=== PATIENT | male | born 2000 | race African-American/Black ===

== ENCOUNTER 2022-01-06 15:08 | Emergency (ER) | payer OTHER ==
[~2022-01-06] VITALS: Ht 175.3 cm; Wt 75.0 kg
[2022-01-06 16:11] LABS: BASO # 0.1 10^3/uL (0.0-0.2); BASO % 0.7 % (0.0-1.0); EOS # 0.2 10^3/uL (0.0-0.5); EOS % 2.7 % (0.0-3.0); HEMATOCRIT 44.3 % (42.0-52.0); HEMOGLOBIN 14.8 g/dl (13.5-17.5); LYMPH # 2.3 10^3/uL (1.5-5.0); LYMPH % 32.4 % (24.0-44.0); MEAN CORPUSCULAR HEMOGLOBIN 29.8 pg (27.0-33.0); MEAN CORPUSCULAR HGB CONC 33.4 g/dl (32.0-36.5); MEAN CORPUSCULAR VOLUME 89.3 fl (80.0-96.0); MONO # 0.9 10^3/uL (0.0-0.8); NEUTROPHILS # 3.7 10^3/uL (1.5-8.5); NEUTROPHILS % 51.9 % (36.0-66.0); PLATELET COUNT, AUTOMATED 298 10^3/uL (150-450); RED BLOOD COUNT 4.96 10^6/uL (4.30-6.10); WHITE BLOOD COUNT 7.1 10^3/uL (4.0-10.0)
[2022-01-06 16:36] LABS: BLOOD UREA NITROGEN 13 MG/DL (7-18); CALCIUM LEVEL 9.5 MG/DL (8.5-10.1); CARBON DIOXIDE LEVEL 27 MEQ/L (21-32); CHLORIDE LEVEL 110 MEQ/L (98-107); CREATININE FOR GFR 1.28 MG/DL (0.70-1.30); GLUCOSE, FASTING 95 MG/DL (70-100); SODIUM LEVEL 142 MEQ/L (136-145); THYROID STIMULATING HORMONE 0.839 uIU/ML (0.463-3.98)
[2022-01-06 18:31] LABS: CK-MB VALUE MASS 11.2 NG/ML (<3.6); MB/CK RELATIVE INDEX 0.34 (< OR =4)
[2022-01-06] MEDS ORDERED: NS 1,000 ML IV ONE ×2 (18:45→21:00)
[2022-01-06 23:37] LABS: CK-MB VALUE MASS 9.2 NG/ML (<3.6); MB/CK RELATIVE INDEX 0.34 (< OR =4)
[2022-01-06] MEDS ORDERED: holter monitor (23:43)
[2022-01-06 23:53] VITALS: BP 112/62
== END 2022-01-06 23:54 | disposition home or self-care (01) ==
LOC: M ED 15:08
DX: R07.89 Other chest pain (principal); R74.8 Abnormal levels of other serum enzymes; R00.2 Palpitations; R42 Dizziness and giddiness; Z77.098 Contact with and (suspected) exposure to other hazardous, chiefly nonmedicinal, chemicals

== ENCOUNTER 2022-07-01 09:44 | Emergency (ER) | payer OTHER ==
[~2022-07-01] VITALS: Ht 175.3 cm; Wt 68.2 kg
[~2022-07-01 09:44] MED LIST: holter monitor
[2022-07-01] MEDS ORDERED: OMEPRAZOLE 20MG CAP PO ONE (14:40)
[2022-07-01 15:09] VITALS: BP 130/63
[2022-07-01 15:12] LABS: BASO # 0.1 10^3/uL (0.0-0.2); BASO % 0.7 % (0.0-1.0); EOS # 0.3 10^3/uL (0.0-0.5); EOS % 4.5 % (0.0-3.0); HEMATOCRIT 47.1 % (42.0-52.0); HEMOGLOBIN 15.6 g/dl (13.5-17.5); LYMPH # 2.1 10^3/uL (1.5-5.0); LYMPH % 31.9 % (24.0-44.0); MEAN CORPUSCULAR HEMOGLOBIN 29.7 pg (27.0-33.0); MEAN CORPUSCULAR HGB CONC 33.1 g/dl (32.0-36.5); MEAN CORPUSCULAR VOLUME 89.5 fl (80.0-96.0); MONO # 0.6 10^3/uL (0.0-0.8); MONO % 9.3 % (2.0-8.0); NEUTROPHILS # 3.6 10^3/uL (1.5-8.5); NEUTROPHILS % 53.3 % (36.0-66.0); PLATELET COUNT, AUTOMATED 305 10^3/uL (150-450); RED BLOOD COUNT 5.26 10^6/uL (4.30-6.10); WHITE BLOOD COUNT 6.7 10^3/uL (4.0-10.0)
[2022-07-01 15:21] LABS: INR 0.98; PROTHROMBIN TIME 13.2 SECONDS (12.5-14.5)
[2022-07-01 15:22] LABS: PARTIAL THROMBOPLASTIN TIME 28.6 SECONDS (24.8-34.2)
[2022-07-01 15:39] LABS: CK-MB VALUE MASS 3.3 NG/ML (<3.6)
[2022-07-01 15:41] LABS: ALBUMIN 4.7 G/DL (3.2-5.2); ALKALINE PHOSPHATASE 70 U/L (46-116); ALT/SGPT 39 U/L (7.0-40); AST/SGOT 47 U/L (<34); BILIRUBIN,DIRECT 0.3 MG/DL (<0.4); BILIRUBIN,TOTAL 0.7 MG/DL (0.3-1.2); BLOOD UREA NITROGEN 10 MG/DL (9-23); CALCIUM LEVEL 9.6 MG/DL (8.5-10.1); CARBON DIOXIDE LEVEL 27 MMOL/L (20-31); CHLORIDE LEVEL 106 MMOL/L (98-107); CPK CREATINE PHOSPHOKINASE 826 U/L (46-171); CREATININE FOR GFR 1.02 MG/DL (0.70-1.30); GLOMERULAR FILTRATION RATE > 60.0 (>60); GLUCOSE, FASTING 85 MG/DL (60-100); MB/CK RELATIVE INDEX 0.39 (< OR =4); POTASSIUM SERUM 4.2 MMOL/L (3.5-5.1); SODIUM LEVEL 139 MMOL/L (136-145); TOTAL PROTEIN 7.2 G/DL (5.7-8.2)
[2022-07-01] MEDS ORDERED: OMEP-173 PO (15:47)
== END 2022-07-01 16:02 | disposition home or self-care (01) ==
LOC: M ED 09:44
DX: R07.89 Other chest pain (principal)

== ENCOUNTER 2023-09-02 14:13 | Emergency (ER) | payer OTHER ==
[~2023-09-02] VITALS: Ht 175.3 cm; Wt 80.0 kg
[~2023-09-02 14:13] MED LIST changes: +OMEP-173 PO
[2023-09-02 14:14] VITALS: BP 148/74; TEMP 98.1; O2SAT 99
[2023-09-02] MEDS ORDERED: AMOX875T2 PO (17:23)
[2023-09-02] MEDS ORDERED: TOBR0.3S30 OP (17:23)
[2023-09-02] MEDS: TOBRAMYCIN 0.3% OPHTH SOLN 5ML OS ONE (17:28)
[2023-09-02] MEDS: AUGMENTIN 875 MG TAB PO ONE (17:28)
== END 2023-09-02 17:35 | disposition home or self-care (01) ==
LOC: M ED 14:13
DX: H00.014 Hordeolum externum left upper eyelid (principal); Z88.8 Allergy status to other drugs, medicaments and biological substances